=== PATIENT | male | born 1975 | race Caucasian/White ===

== ENCOUNTER 2016-08-21 09:57 | Emergency (ER) | payer OTHER ==
[2016-08-21 10:11] VITALS: BMI 24.2
[2016-08-21] MEDS ORDERED: SODIUM CHLORIDE 1,000 ML IV STA (10:42)
[2016-08-21] MEDS ORDERED: KETOROLAC TROMETHAMINE 30 MG/1 ML VIAL IVPUSH ONE (10:42)
--- NOTE | 2016-08-21 10:42 | PDOC ---
History of Present Illness - General History Source: Patient Exam Limitations: No Limitations - History of Present Illness Initial Comments: 08/21/16 10:53 The patient is a 40-year-old man with a significant past medical history of a urinary tract infection who presents to the emergency department via-walk in for further evaluation of a 2 day history of worsening left flank pain. No fall , trauma, strenuous activity. He reports experiencing constant left flank pain that radiates to his left lower quadrant with a rate 8/10 in severity. Patient notes associated symptoms of dysuria, describes as burning sensations. He reports his pain worsened last night as he slept on his left side. He also notes that walking this morning, also exacerbated his pain. He did not take any [id number] medications to help with his symptoms. He notes experiencing similar symptoms in the past (on the right flank) for which he was found to have an urinary tract infection. He denies chest pain, cough, shortness of breath, headache He denies nausea, vomiting, diarrhea Allergies: No Known Drug Allergies. Past Surgical History: Appendectomy. Lower Back Surgery. Social History: No tobacco, ETOH and recreational drug use. Primary Care Physician: Dr. Urszula Virk / [phone] <Anjali Yu - Last Filed: 08/21/16 13:27> <Eliza Quezada - Last Filed: 08/23/16 07:21> - General Chief Complaint: Pain, Acute Stated Complaint: BACK PAIN Time Seen by Provider: 08/21/16 10:29 Past History <Anjali Yu - Last Filed: 08/21/16 13:27> - Surgical History Appendectomy: Yes Neurologic Surgery: Yes (lower back) - Psycho/Social/Smoking Cessation Hx Anxiety: No Suicidal Ideation: No Smoking History: Never smoked Information on smoking cessation initiated: No Hx Alcohol Use: No Drug/Substance Use Hx: No Substance Use Type: None <Eliza Quezada - Last Filed: 08/23/16 07:21> - Past Medical History Allergies/Adverse Reactions: Allergies Allergy/AdvReac Type Severity Reaction Status Date / Time No Known Allergies Allergy Unverified 08/21/16 10:11 Home Medications: Ambulatory Orders NK [No Known Home Medication] 08/21/16 Review of Systems - Review of Systems Able to Perform ROS?: Yes Comments:: 08/21/16 10:53 GENERAL/CONSTITUTIONAL: No fever or chills. No weakness. HEAD, EYES, EARS, NOSE AND THROAT: No change in vision. No ear pain or discharge. No sore throat. CARDIOVASCULAR: No chest pain or shortness of breath. RESPIRATORY: No cough, wheezing, or hemoptysis. GASTROINTESTINAL: Yes: Left lower quadrant pain. No nausea, vomiting, diarrhea or constipation. GENITOURINARY: Yes: Left flank pain. Dysuria. No frequency, or change in urination. MUSCULOSKELETAL: No joint or muscle swelling or pain. No neck or back pain. SKIN: No rash NEUROLOGIC: No headache, vertigo, loss of consciousness, or change in strength/ sensation. ENDOCRINE: No increased thirst. No abnormal weight change. HEMATOLOGIC/LYMPHATIC: No anemia, easy bleeding, or history of blood clots. ALLERGIC/IMMUNOLOGIC: No hives or skin allergy. <Anjali Yu - Last Filed: 08/21/16 13:27> *Physical Exam - Vital Signs Last Vital Signs Temp Pulse Resp BP Pulse Ox 98.1 F 76 18 112/66 98 08/21/16 10:08 08/21/16 10:08 08/21/16 10:08 08/21/16 10:08 08/21/16 10:08 - Physical Exam Comments: 08/21/16 10:53 GENERAL: Awake, alert, and fully oriented. Appears uncomfortable. HEAD: No signs of trauma EYES: PERRLA, EOMI, sclera anicteric, conjunctiva clear ENT: Auricles normal inspection, hearing grossly normal, nares patent, oropharynx clear without exudates. Moist mucosa NECK: Normal ROM, supple, no lymphadenopathy, JVD, or masses LUNGS: Breath sounds equal, clear to auscultation bilaterally. No wheezes, and no crackles HEART: Regular rate and rhythm, normal S1 and S2, no murmurs, rubs or gallops ABDOMEN: Soft,there is left sided and left lwoer quadrant tenderness to palpation. Normoactive bowel sounds. No guarding, no rebound. No masses. BACK: No CVA tenderness. EXTREMITIES: Normal range of motion, no edema. No clubbing or cyanosis. No cords, erythema, or tenderness NEUROLOGICAL: Cranial nerves II through XII grossly intact. Normal speech, normal gait <Anjali Yu - Last Filed: 08/21/16 13:27> - Vital Signs Last Vital Signs Temp Pulse Resp BP Pulse Ox 98.1 F 76 18 112/66 98 08/21/16 10:08 08/21/16 10:08 08/21/16 10:08 08/21/16 10:08 08/21/16 10:08 <Eliza Quezada - Last Filed: 08/23/16 07:21> ED Treatment Course - LABORATORY CBC & Chemistry Diagram: 08/21/16 10:55 08/21/16 10:55 - RADIOLOGY Radiograph Interpretation: 08/21/16 13:27 EXAM: CT/SPIRAL- RENAL-STONE CT IMPRESSION: CT scan of the abdomen pelvis without oral and intravenous contrast Coronal and sagittal reformatted images were obtained The visualized lung base appears unremarkable and the heart is within normal limits in size. Evaluation of the liver, spleen, pancreas, gallbladder, both adrenal glands and both kidneys appear unremarkable. Both kidneys appear unremarkable without evidence of hydroureteronephrosis, renal or ureteral stone , bilaterally.Partially distended stomach without thickening of its wall. There is no evidence of small bowel obstruction or enlarged retroperitoneal lymph nodes. Normal- appearing terminal ileum. The appendix is not identified. Normal stool burden in the colon without wall thickening partially distended urinary bladder without wall thickening or intraluminal stones. Normal size prostate gland. Perirectal and pericecal fat is clear. L5-S1 moderate degenerative disc disease, vacuum phenomena and calcifications within the intervertebral disc space as well as mild central disc bulge without gross nerve root impingement <Anjali Yu - Last Filed: 08/21/16 13:27> - LABORATORY CBC & Chemistry Diagram: 08/21/16 10:55 08/21/16 10:55 <Eliza Quezada - Last Filed: 08/23/16 07:21> Medical Decision Making - Medical Decision Making UA with no signs of UTI, CT no signs of stone. Likely musculoskeletal low back pain. +Relief with toradol. Stable for DC home. <Eliza Quezada - Last Filed: 08/23/16 07:21> *DC/Admit/Observation/Transfer - Attestations Scribe Attestion: 08/21/16 10:53 Documentation prepared by Anjali Yu, acting as medical collector for Eliza Quezada MD. <Anjali Yu - Last Filed: 08/21/16 13:27> - Discharge Dispostion Admit: No <Eliza Quezada - Last Filed: 08/23/16 07:21> Diagnosis at time of Disposition: Low back pain Qualifiers: Chronicity: acute Back pain laterality: left Sciatica presence: without sciatica Qualified Code(s): M54.5 - Low back pain - Discharge Dispostion Disposition: HOME Condition at time of disposition: Stable - Referrals Referrals: Urszula Chávez MD [Primary Care Provider] - - Patient Instructions Printed Discharge Instructions: DI for Low Back Pain - Post Discharge Activity Work/School Note: Back to Work
[2016-08-21] MEDS ORDERED: KETOROLAC TROMETHAMINE 30 MG/1 ML VIAL ONE (10:46)
[2016-08-21 11:03] LABS: BASOPHIL 0.3 % (0-2.0); EOSINOPHIL 0.8 % (0-4.5); MCH 28.7 pg (25.7-33.7); MCHC 32.5 g/dl (32.0-35.9); MEAN CELL VOLUME 88.3 fl (80-96); MEAN PLT VOLUME 8.3 fl (7.5-11.1); PLATELET COUNT 204 K/MM3 (134-434); RDW 13.5 % (11.9-15.9); WHITE BLOOD COUNT 8.3 K/mm3 (4.0-10.0)
[2016-08-21 11:12] LABS: URINE APPEARANCE CLEAR; URINE BILIRUBIN NEGATIVE (NEGATIVE); URINE COLOR STRAW; URINE GLUCOSE (UA) NEGATIVE (NEGATIVE); URINE KETONE NEGATIVE (NEGATIVE); URINE LEUK ESTERASE NEGATIVE (NEGATIVE); URINE NITRITE NEGATIVE (NEGATIVE); URINE PROTEIN NEGATIVE (NEGATIVE); URINE UROBILINOGEN NEGATIVE E.U./dl (0.2-1.0)
[2016-08-21 11:14] LABS: URINE BLOOD 1+ (NEGATIVE)
[2016-08-21 11:18] LABS: URINE MUCUS RARE; URINE RBC <1 /hpf (0-3)
[2016-08-21 11:28] LABS: ALBUMIN 3.9 g/dl (3.4-5.0); ALK PHOS 77 U/L (45-117); ANION GAP 6 (8-16); BILIRUBIN,TOTAL 0.6 mg/dL (0.2-1.0); CALCIUM 9.1 mg/dL (8.5-10.1); CO2 32 mmol/L (21-32); GLUCOSE,RANDOM 91 mg/dL (74-106); SGOT/AST 19 U/L (15-37); SGPT/ALT 27 U/L (12-78)
[2016-08-21 13:43] VITALS: BP 100/62; PULSE 64; TEMP 98.2
== END 2016-08-21 14:10 | disposition home or self-care (01) ==
LOC: JER 09:57
PROC: 3E0333Z Introduction of Anti-inflammatory into Peripheral Vein, Percutaneous Approach (ICD-10-PCS; principal; 2016-08-21)
PROC: 3E0337Z Introduction of Electrolytic and Water Balance Substance into Peripheral Vein, Percutaneous Approach (ICD-10-PCS; 2016-08-21)
DX: M54.5 Low back pain (principal); Z87.440 Personal history of urinary (tract) infections
CPT/HCPCS: 36415; 74176; 80053; 81003; 81015; 85025; 87086; 96361; 96374; 99282-25

== ENCOUNTER 2021-07-22 10:47 | Emergency (ER) | payer OTHER ==
[2021-07-22 10:51] VITALS: BP 98/75; PULSE 77; TEMP 97.5; BMI 24.2
[2021-07-22] MEDS ORDERED: SODIUM CHLORIDE 1,000 ML IV STA (11:11)
[2021-07-22] MEDS ORDERED: ACETAMINOPHEN 1000 MG/100 ML BAG IVPB ONE (11:11)
[2021-07-22] MEDS ORDERED: METOCLOPRAMIDE HCL INJECTION 10 MG/2 ML VIAL IVPB ONE (11:11)
[2021-07-22] MEDS ORDERED: ACETAMINOPHEN INJECTION 100 ML IVPB ONE (11:22)
[2021-07-22] MEDS ORDERED: METOCLOPRAMIDE HCL INJECTION 10 MG/2 ML VIAL ONE (11:22)
[2021-07-22] MEDS ORDERED: FAMOTIDINE 20 MG/50 ML IVPB 20 MG/50 ML MG IVPB ONE ×2 (11:30→12:01)
[2021-07-22 12:13] LABS: EOS % 2.5 % (0-4.5); HEMATOCRIT 43.4 % (35.4-49); HEMOGLOBIN 14.2 GM/dL (11.7-16.9); LYMPH % 34.8 % (8-40); MCH 29.2 pg (25.7-33.7); MCHC 32.7 g/dl (32.0-35.9); MEAN CELL VOLUME 89.1 fl (80-96); MEAN PLT VOLUME 8.8 fl (7.5-11.1); MONO % 11.3 % (3.8-10.2); NEUT % 50.4 % (42.8-82.8); PLATELET COUNT 237 10^3/uL (134-434); RBC 4.87 M/mm3 (4.00-5.60); RDW 13.2 % (11.9-15.9); WHITE BLOOD COUNT 3.1 K/mm3 (4.0-10.0)
[2021-07-22 12:35] LABS: BLOOD UREA NITROGEN 13.4 mg/dL (7-18); CALCIUM 9.3 mg/dL (8.5-10.1)
[2021-07-22 12:36] LABS: ALBUMIN 3.8 g/dl (3.4-5.0)
[2021-07-22 12:38] LABS: CREATININE 0.9 mg/dL (0.55-1.3)
[2021-07-22 12:40] LABS: BILIRUBIN,TOTAL 0.9 mg/dL (0.2-1)
== END 2021-07-22 13:06 | disposition home or self-care (01) ==
LOC: JER 10:47
PROC: 3E033GC Introduction of Other Therapeutic Substance into Peripheral Vein, Percutaneous Approach (ICD-10-PCS; principal; 2021-07-22)
DX: K29.00 Acute gastritis without bleeding (principal)
CPT/HCPCS: 36415; 76705-TC; 80053; 83690; 85025; 96365; 96375; 99284-25; C9803; J0131; U0003; U0005

== ENCOUNTER 2022-02-21 04:28 | Day surgery (SDC) | payer OTHER ==
[2022-02-19 09:50] VITALS: BMI 23.3
[2022-02-21 11:09] VITALS: BP 98/66; PULSE 60; RESP 17
[2022-02-21 13:35] VITALS: TEMP 98
== END 2022-02-21 10:30 | disposition home or self-care (01) ==
LOC: JASU-ENDO 04:28
PROVIDERS: ATTEND Internal Medicine Gastroenterology
PROC: 0DJD8ZZ Inspection of Lower Intestinal Tract, Via Natural or Artificial Opening Endoscopic (ICD-10-PCS; principal; 2022-02-21 09:15)
DX: R10.31 Right lower quadrant pain (principal); K64.8 Other hemorrhoids; K63.89 Other specified diseases of intestine

== ENCOUNTER 2022-04-23 21:33 | Emergency (ER) | payer OTHER ==
[2022-04-23 21:41] VITALS: BP 111/76; PULSE 73; RESP 18; TEMP 97.6; BMI 23.8
[2022-04-23] MEDS ORDERED: LIDOCAINE 5% TOPICAL PATCH TP ONE (21:58)
[2022-04-23] MEDS ORDERED: METHOCARBAMOL 500 MG TABLET PO ONE (21:58)
[2022-04-23] MEDS ORDERED: KETOROLAC TROMETHAMINE 30 MG/1 ML VIAL IM ONE (21:58)
[2022-04-23] MEDS ORDERED: LIDOCAINE 5% TOPICAL PATCH ONE (22:01)
[2022-04-23] MEDS ORDERED: KETOROLAC TROMETHAMINE 30 MG/1 ML VIAL ONE (22:01)
[2022-04-23] MEDS ORDERED: METHOCARBAMOL 500 MG TABLET ONE (22:01)
== END 2022-04-23 22:36 | disposition home or self-care (01) ==
LOC: JERFT 21:33 → JER 21:33 → JERFT 22:36
PROC: 3E0233Z Introduction of Anti-inflammatory into Muscle, Percutaneous Approach (ICD-10-PCS; principal; 2022-04-23)
DX: S46.911A Strain of unspecified muscle, fascia and tendon at shoulder and upper arm level, right arm, initial encounter (principal); X50.0XXA Overexertion from strenuous movement or load, initial encounter
CPT/HCPCS: 73030-TC-RT-FY; 99284-25

== ENCOUNTER 2024-03-14 23:09 | Emergency (ER) | payer OTHER ==
[2024-03-14 23:15] VITALS: BP 128/82; PULSE 71; RESP 16; TEMP 98.4; BMI 22.6
[2024-03-15] MEDS ORDERED: DEXAMETHASONE SOD PHOSPHATE 10 MG/1 ML VIAL ONE (00:11)
[2024-03-15] MEDS ORDERED: diphenhydrAMINE HCL 25 MG CAPSULE (FP) PO ONE (00:11)
[2024-03-15] MEDS: DEXAMETHASONE SOD PHOSPHATE 10 MG/1 ML VIAL IM ONE (00:13)
[2024-03-15] MEDS: diphenhydrAMINE HCL 25 MG CAPSULE (FP) PO ONE (00:13)
== END 2024-03-15 00:15 | disposition home or self-care (01) ==
LOC: JER 23:09
PROC: 3E023GC Introduction of Other Therapeutic Substance into Muscle, Percutaneous Approach (ICD-10-PCS; principal; 2024-03-15)
DX: R21 Rash and other nonspecific skin eruption (principal)
CPT/HCPCS: 99284-25; J1100

== ENCOUNTER 2024-08-05 12:16 | Emergency (ER) | payer OTHER ==
[2024-08-05 12:34] VITALS: BP 109/52; PULSE 68; RESP 17; TEMP 97.8; BMI 21.2
[2024-08-05] MEDS ORDERED: KETOROLAC TROMETHAMINE 15 MG/ML VIAL ONE (13:30)
[2024-08-05] MEDS ORDERED: LIDOCAINE 4% PATCH TP ONE (13:30)
[2024-08-05] MEDS: KETOROLAC TROMETHAMINE 15 MG/ML VIAL IM ONE (13:40)
[2024-08-05] MEDS: LIDOCAINE 5% TOPICAL PATCH TP ONE (13:40)
[2024-08-05 13:46] LABS: PH,URINE 6.5 (5.0-8.0); URINE APPEARANCE CLEAR; URINE BILIRUBIN NEGATIVE (NEGATIVE); URINE COLOR YELLOW; URINE GLUCOSE (UA) NEGATIVE (NEGATIVE); URINE KETONE NEGATIVE (NEGATIVE); URINE LEUK ESTERASE NEGATIVE (NEGATIVE); URINE NITRITE NEGATIVE (NEGATIVE); URINE PROTEIN NEGATIVE (NEGATIVE)
[2024-08-05] MEDS ORDERED: LIDOCAINE PATCH REMOVAL MC SCH (22:00)
== END 2024-08-05 14:37 | disposition home or self-care (01) ==
LOC: JERFT 12:16
PROC: 3E0233Z Introduction of Anti-inflammatory into Muscle, Percutaneous Approach (ICD-10-PCS; principal; 2024-08-05)
DX: M54.50 Low back pain, unspecified (principal)
CPT/HCPCS: 81003; 87086; 99284-25